=== PATIENT | female | born 1955 | race Hispanic/Latino ===

== ENCOUNTER 2019-08-07 01:05 | Inpatient (IN) | payer MEDICARE ==
[2019-08-07] MEDS ORDERED: LORazepam 2 MG/ML VIAL IM PRN (10:24)
[2019-08-07] MEDS ORDERED: HALOPERIDOL LACTATE 5 MG/1 ML INJ IM PRN (10:24)
--- NOTE | 2019-08-07 14:20 | History and Physical Report ---
GP History & Physical - History of Present Illness Date of admission: 08/06/19 Date of Examination: 08/07/19 Medications and Allergies Allergies Allergy/AdvReac Type Severity Reaction Status Date / Time Penicillins AdvReac Unknown Unknown Verified 08/07/19 01:29 Home Medications Medication Instructions Recorded Confirmed Last Taken Type Acetaminophen [Mapap] 325 mg PO PRN 08/07/19 08/07/19 Unknown History Amitriptyline/Chlordiazepoxide 5 - 12.5 mg PO TID 08/07/19 08/07/19 Unknown History [chlordiazePOXIDE-Amitriptyline 5/12.5 mg] Apixaban [Eliquis] 5 mg PO BID 08/07/19 08/07/19 Unknown History Digoxin [Lanoxin] 125 mcg PO DAILY 08/07/19 08/07/19 Unknown History Estradiol 1 mg PO DAILY 08/07/19 08/07/19 Unknown History Furosemide [Lasix TAB] 40 mg PO DAILY 08/07/19 08/07/19 Unknown History Gabapentin 300 mg PO TID 08/07/19 08/07/19 Unknown History Insulin NPH Hum/Reg Insulin Hm 20 unit SQ BID 08/07/19 08/07/19 Unknown History [Relion Novolin 70-30 Vial] Lisinopril 20 mg PO DAILY 08/07/19 08/07/19 Unknown History Metoprolol [Lopressor TAB] 50 mg PO BID 08/07/19 08/07/19 Unknown History Pantoprazole [Protonix TAB] 40 mg PO DAILY 08/07/19 08/07/19 Unknown History cephALEXin [Keflex] 500 mg PO BID 08/07/19 08/07/19 Unknown History glipiZIDE [Glucotrol] 5 mg pe PO DAILY 08/07/19 08/07/19 Unknown History metFORMIN [Glucophage] 500 mg PO BID 08/07/19 08/07/19 Unknown History rOPINIRole [Requip] 2 mg PO QID 08/07/19 08/07/19 Unknown History risperiDONE [RisperDAL] 2 mg PO DAILY 08/07/19 08/07/19 Unknown History Active Meds: Active Medications Haloperidol Lactate (Haldol) 5 mg IM Q6H PRN PRN Reason: Agitation Lorazepam (Ativan) 2 mg IM Q6H PRN PRN Reason: Agitation Results - Results Labs/Vitals: Laboratory Last Values POC Glucose 139 (70-105) H 08/07/19 11:48 Last Vital Signs Temp 98.2 F 08/07/19 09:32 Pulse 92 H 08/07/19 09:32 Resp 16 08/07/19 09:32 BP 91/53 08/07/19 09:32 Pulse Ox 95 08/07/19 09:32 Physical Examination - Constitutional Vitals: Vital Signs Temp Pulse Resp BP Pulse Ox 98.2 F 92 H 16 91/53 95 08/07/19 09:32 08/07/19 09:32 08/07/19 09:32 08/07/19 09:32 08/07/19 09:32 Temperature -Last 24 Hours Temperature 98.2 F Temperature 98.4 F Mental Status Exam - Vital signs Last Vital Signs Temp 98.2 F 08/07/19 09:32 Pulse 92 H 08/07/19 09:32 Resp 16 08/07/19 09:32 BP 91/53 08/07/19 09:32 Pulse Ox 95 08/07/19 09:32 Physician Certification - Certification Statement Physician Certification Statement: This is an acknowledgement statement that CHINEDU HOLLINGSWORTH is a 64 year old F who requires inpatient psychiatric admission for treatment which could reasonably be expected to improve the patient's condition for Estimated period of time patient will need to remain in the hospital: [ ] Plan for post-hospital care: [ ]
[2019-08-07] MEDS ORDERED: NITROGLYCERIN 0.4 MG TAB SUBL SL PRN (14:56)
[2019-08-07] MEDS ORDERED: ACETAMINOPHEN 325 MG TAB PO SCH (15:00)
--- NOTE | 2019-08-07 15:09 | Consultation ---
History of Present Illness - Reason for Consult Consult date: 08/07/19 Requesting physician: JONATHAN GARCIA - History of Present Illness It is a 64-year-old female with a history of hypertension #2 myocardial infarction status post stenting, restless leg syndrome, coronary disease, diabetes hyperlipidemia presents with chief complaint of acute psychosis and paranoia. Patient from [facility] brought from that town to [facility]. Patient was placed in psychiatric hospital was stabilized. Had an episode of chest pain and was discharged out of the hospital for full workup. Patient had a negative troponin echo showed ejection fraction 40%. Stress test negative and CTA was negative as well. Presents this time with chest pain. He should pain is described as atypical. Patient states similar to indigestion. Nonradiating right under xiphoid process. Patient also complains of a soreness consistent with previous CABG. At present in no acute distress patient's pain free at this particular time. She is calm and cooperative has been at bedside all questions and concerns answered to her family's satisfaction. Past History Past Medical History: CAD, diabetes, heart failure, hypertension Past Surgical History: CABG, PTCA Social history: , lives with family, full code Family history: hypertension Medications and Allergies Allergies Allergy/AdvReac Type Severity Reaction Status Date / Time Penicillins AdvReac Unknown Unknown Verified 08/07/19 01:29 Home Medications Medication Instructions Recorded Confirmed Last Taken Type Acetaminophen [Mapap] 325 mg PO PRN 08/07/19 08/07/19 Unknown History Amitriptyline/Chlordiazepoxide 5 - 12.5 mg PO TID 08/07/19 08/07/19 Unknown History [chlordiazePOXIDE-Amitriptyline 5/12.5 mg] Apixaban [Eliquis] 5 mg PO BID 08/07/19 08/07/19 Unknown History Digoxin [Lanoxin] 125 mcg PO DAILY 08/07/19 08/07/19 Unknown History Estradiol 1 mg PO DAILY 08/07/19 08/07/19 Unknown History Furosemide [Lasix TAB] 40 mg PO DAILY 08/07/19 08/07/19 Unknown History Gabapentin 300 mg PO TID 08/07/19 08/07/19 Unknown History Insulin NPH Hum/Reg Insulin Hm 20 unit SQ BID 08/07/19 08/07/19 Unknown History [Relion Novolin 70-30 Vial] Lisinopril 20 mg PO DAILY 08/07/19 08/07/19 Unknown History Metoprolol [Lopressor TAB] 50 mg PO BID 08/07/19 08/07/19 Unknown History Pantoprazole [Protonix TAB] 40 mg PO DAILY 08/07/19 08/07/19 Unknown History cephALEXin [Keflex] 500 mg PO BID 08/07/19 08/07/19 Unknown History glipiZIDE [Glucotrol] 5 mg pe PO DAILY 08/07/19 08/07/19 Unknown History metFORMIN [Glucophage] 500 mg PO BID 08/07/19 08/07/19 Unknown History rOPINIRole [Requip] 2 mg PO QID 08/07/19 08/07/19 Unknown History risperiDONE [RisperDAL] 2 mg PO DAILY 08/07/19 08/07/19 Unknown History Active Meds: Active Medications Acetaminophen (Tylenol) 325 mg PO PRN [facility] Apixaban (Eliquis) 5 mg PO BID [facility]; Protocol Stop: 08/13/19 23:59 Cephalexin (Keflex) 500 mg PO BID [facility] Digoxin (Lanoxin) 0.125 mg PO DAILY [facility] Estradiol (Estrace) 1 mg PO DAILY [facility] Furosemide (Lasix) 40 mg PO DAILY [facility] Gabapentin (Gabapentin) 300 mg PO TID [facility] Glipizide (Glucotrol) mg PO DAILY [facility] Haloperidol Lactate (Haldol) 5 mg IM Q6H PRN PRN Reason: Agitation Insulin Human Isoph/Insulin Regular (Humulin 70/30) 20 unit SUB-Q BID [facility] Stop: 08/11/19 23:59 Lorazepam (Ativan) 2 mg IM Q6H PRN PRN Reason: Agitation Nitroglycerin (Nitrostat) 0.4 mg SL .Q5MIN PRN PRN Reason: Chest Pain Pantoprazole Sodium (Protonix) 40 mg PO DAILY [facility] Review of Systems Constitutional: weight loss, weakness, no fever, no chills, no sweats, no night sweats, no fatigue, no malaise, no lethargy, no chronic headaches, no poor appetite Ears, nose, mouth and throat: no ear discharge, no decreased hearing, no dental pain, no mouth pain, no sore throat, no swelling in throat, no voice changes, no neck lump Breasts: no deferred Cardiovascular: chest pain, edema, no orthopnea, no palpitations, no rapid/irregular heart beat, no syncope, no lightheadedness, no shortness of breath, no dyspnea on exertion, no phlebitis, no high blood pressure, no leg edema, no decreased exercise tolerance Respiratory: no cough, no shortness of breath, no wheezing, no pleurisy, no pain on inspiration, no respiratory infections, no home oxygen Gastrointestinal: nausea, loss of appetite, no vomiting, no constipation, no change in bowel habits, no hematemesis, no hematochezia, no early satiety, no heartburn Genitourinary Female: no dyspareunia, no menorrhagia, no dysuria, no urinary frequency, no urge incontinence, no nocturia, no decreased libido, no mood problems Menstruation: no period spotting, no menses 1-7 days Musculoskeletal: no neck stiffness, no shooting arm pain, no low back pain, no leg numbness/tingling, no morning stiffness, no muscle weakness, no atrophy, no fractures, no arthritis Integumentary: no rash, no redness, no boils, no lesions, no depigmentation, no acne, no color changes, no change in hair/nails, no striae, no hirsutism Neurological: numbness, no head injury, no transient paralysis, no paralysis, no parathesias, no tingling, no syncope, no tic, no aphasia, no change in mentation, no memory loss, no motor disturbance, no double vision Psychiatric: anxiety, hallucinations, paranoia, difficulties concentrating, no memory loss, no change in sleep habits, no sleep disturbances, no insomnia, no hypersomnia, no change in appetite, no change in libido, no suicidal ideation, no disorientation, no depression, no hopelessness, no anhedonia, no anxiety attacks, no sadness/tearfullness Endocrine: no flushing, no proptosis, no deepening of the voice, no high blood sugars, no recent glucocorticoid use, no fatigue Hematologic/Lymphatic: no easy bruising, no easy bleeding, no lymphadenopathy, no thrombophilia, no other Allergic/Immunologic: no allergic rhinitis, no wheezing, no persistent infections, no anaphylaxis, no other Exam - Constitutional Vitals: Temp Pulse Resp BP Pulse Ox 98.2 F 92 H 16 91/53 95 08/07/19 09:32 08/07/19 09:32 08/07/19 09:32 08/07/19 09:32 08/07/19 09:32 General appearance: Present: no acute distress, well-nourished - EENT Eyes: Present: PERRL ENT: hearing intact, clear oral mucosa - Neck Neck: Present: supple, normal ROM - Respiratory Respiratory effort: normal Respiratory: bilateral: CTA - Cardiovascular Heart Sounds: Present: S1 & S2. Absent: rub, click - Extremities Extremities: pulses symmetrical, No edema Extremity abnormal: edema Peripheral Pulses: within normal limits - Abdominal General gastrointestinal: Present: soft, non-tender, non-distended, normal bowel sounds Female genitourinary: Present: normal - Integumentary Integumentary: Present: clear, warm, dry - Musculoskeletal Musculoskeletal: gait normal, strength equal bilaterally - Psychiatric Psychiatric: appropriate mood/affect, intact judgment & insight - Neurologic Neurologic: CNII-XII intact, moves all extremities Results - Labs Labs: Abnormal lab results 08/07/19 08/07/19 Range/Units 07:41 11:48 POC Glucose 163 H 139 H (70-105) Assessment and Plan - Patient Problems (1) Chest pain Current Visit: Yes Status: Acute Plan to address problem: chest pain at present appears to be noncardiogenic. Patient recent negative workup on 08/06/2019. Unremarkable and chest pain is not typical of angina at this particular time. We'll treat when necessary nitroglycerin. Treat for GERD which is most likely with proton pump inhibitor. He should also has some soreness from recent CABG but this is also different than the pain she is having. (2) Restless leg syndrome Current Visit: Yes Status: Acute Plan to address problem: Restart medical management Requip. (3) Schizophrenia Current Visit: Yes Status: Acute Plan to address problem: patient here paranoid schizophrenia being followed by psychiatry. (4) Coronary artery disease Current Visit: Yes Status: Acute Plan to address problem: She'll history of coronary artery disease stable at this particular time aggressive antiplatelet anti-thrombin therapy. (5) Hypertension Current Visit: Yes Status: Acute Plan to address problem: She now has been consistently hypotensive we'll continue to hold medicines at this particular time. (6) Diabetes 1.5, managed as type 1 Current Visit: Yes Status: Acute Plan to address problem: Diabetes or resume insulin and glipizide. We'll hold metformin for now reintroduce his blood sugars remain elevated.
[2019-08-07] MEDS ORDERED: DEXTROSE 50% IN WATER (25GM) 50 ML SYRINGE IV PRN (15:18)
[2019-08-07] MEDS: DIGOXIN 0.125 MG TAB PO SCH (18:15)
[2019-08-07] MEDS: cephALEXin 500 MG CAP PO SCH ×2 (18:15→21:29)
[2019-08-07] MEDS: ESTRADIOL 1 MG TAB PO SCH (18:15)
[2019-08-07] MEDS: FUROSEMIDE 40 MG TAB PO SCH (18:17)
[2019-08-07] MEDS: PANTOPRAZOLE 40 MG TAB PO SCH (18:18)
[2019-08-07] MEDS: INSULIN NPH/REGULAR 70/30 INJ SUB-Q SCH (18:21)
[2019-08-07] MEDS: GABAPENTIN 300 MG CAP PO SCH (20:02)
[2019-08-07] MEDS: AMITRIPTYLINE 25 MG TAB PO SCH (21:28)
[2019-08-07] MEDS: APIXABAN 5 MG TAB PO SCH (21:29)
[2019-08-07 22:20] LABS: Basophils # (Auto) 0.1 K/mm3 (0.0-0.1); Eosinophils # (Auto) 0.3 K/mm3 (0.0-0.4); Monocytes # (Auto) 0.8 K/mm3 (0.0-0.8); Monocytes % (Auto) 9.7 % (0.0-7.3)
[2019-08-07 22:21] LABS: Hematocrit 37.7 % (30.3-42.9); Hemoglobin 12.3 gm/dl (10.1-14.3); Mean Corpuscular HGB Conc 33 % (30-34); Mean Corpuscular Volume 90 fl (79-97); Platelet Count 263 K/mm3 (140-440); Red Blood Count 4.19 M/mm3 (3.65-5.03); Red Cell Distribution Width 21.2 % (13.2-15.2)
[2019-08-07 22:22] LABS: Basophils % (Auto) 1.1 % (0.0-1.8)
[2019-08-07 22:40] LABS: Calcium 9.4 mg/dL (8.4-10.2); Chol/HDL Ratio 6.24 %
[2019-08-08] MEDS: rOPINIRole 1 MG TAB PO SCH ×2 (00:23→21:12)
[2019-08-08] MEDS: GABAPENTIN 300 MG CAP PO SCH ×3 (08:55→20:17)
[2019-08-08] MEDS: glipiZIDE 5 MG TAB PO SCH (08:55)
[2019-08-08] MEDS: INSULIN NPH/REGULAR 70/30 INJ SUB-Q SCH ×2 (09:52→17:03)
[2019-08-08] MEDS: DIGOXIN 0.125 MG TAB PO SCH (10:25)
[2019-08-08] MEDS: ESTRADIOL 1 MG TAB PO SCH (10:25)
[2019-08-08] MEDS: FUROSEMIDE 40 MG TAB PO SCH (10:26)
[2019-08-08] MEDS: APIXABAN 5 MG TAB PO SCH ×2 (10:26→21:13)
[2019-08-08] MEDS: PANTOPRAZOLE 40 MG TAB PO SCH (10:26)
[2019-08-08] MEDS: cephALEXin 500 MG CAP PO SCH ×2 (10:26→21:13)
--- NOTE | 2019-08-08 13:07 | History and Physical Report ---
GP History & Physical - History of Present Illness Date of admission: 08/07/19 Date of Examination: 08/08/19 Reason for Admission: Psychopathology interference, Unable to care for self Chief Complaint: Unresponsive at times History of Present Illness: The patient is a 64-year-old female with a history of Schizoaffective disorder, bipolar type, hypertension #2 myocardial infarction status post stenting, restless leg syndrome, coronary disease, diabetes hyperlipidemia presents with acute psychosis, paranoia and intermittent catatonia. Patient from [facility] brought from that town to [facility]. Patient was placed in psychiatric hospital was stabilized. Had an episode of chest pain and was discharged out of the hospital for full workup. Patient had a negative troponin echo showed ejection fraction 40%. Stress test negative and CTA was negative as well. She is calm, alert and cooperative. She admits she has not been compliant with her medication. Per report pt has episodes when she zones out and becomes non responsive. She denies having auditory hallucinations but per family she has periods of both visual and auditory hallucinations since her cva (date unknown) and is paranoid that someone is trying to kill her. Per family pt has been more depressed than bipolar. Pt has multiple medical problems. She had a VT and Cabg in 10/2018. Hx of Cva, DM, Htn, Cervical CA, CHF, CAD and recently dx UTI for which she was prescribed Keflex. Legal Status: Voluntary Patient Problems: Current Active Problems Chest pain (Acute) Coronary artery disease (Acute) Diabetes 1.5, managed as type 1 (Acute) Hypertension (Acute) Restless leg syndrome (Acute) Schizophrenia (Acute) Reaction to Hospitalization: Accepting Medications and Allergies Allergies Allergy/AdvReac Type Severity Reaction Status Date / Time Penicillins AdvReac Unknown Unknown Verified 08/07/19 01:29 Home Medications Medication Instructions Recorded Confirmed Last Taken Type Acetaminophen [Mapap] 325 mg PO PRN 08/07/19 08/07/19 Unknown History Amitriptyline/Chlordiazepoxide 5 - 12.5 mg PO TID 08/07/19 08/07/19 Unknown History [chlordiazePOXIDE-Amitriptyline 5/12.5 mg] Apixaban [Eliquis] 5 mg PO BID 08/07/19 08/07/19 Unknown History Digoxin [Lanoxin] 125 mcg PO DAILY 08/07/19 08/07/19 Unknown History Estradiol 1 mg PO DAILY 08/07/19 08/07/19 Unknown History Furosemide [Lasix TAB] 40 mg PO DAILY 08/07/19 08/07/19 Unknown History Gabapentin 300 mg PO TID 08/07/19 08/07/19 Unknown History Insulin NPH Hum/Reg Insulin Hm 20 unit SQ BID 08/07/19 08/07/19 Unknown History [Relion Novolin 70-30 Vial] Lisinopril 20 mg PO DAILY 08/07/19 08/07/19 Unknown History Metoprolol [Lopressor TAB] 50 mg PO BID 08/07/19 08/07/19 Unknown History Pantoprazole [Protonix TAB] 40 mg PO DAILY 08/07/19 08/07/19 Unknown History cephALEXin [Keflex] 500 mg PO BID 08/07/19 08/07/19 Unknown History glipiZIDE [Glucotrol] 5 mg pe PO DAILY 08/07/19 08/07/19 Unknown History metFORMIN [Glucophage] 500 mg PO BID 08/07/19 08/07/19 Unknown History rOPINIRole [Requip] 2 mg PO QID 08/07/19 08/07/19 Unknown History risperiDONE [RisperDAL] 2 mg PO DAILY 08/07/19 08/07/19 Unknown History Active Meds: Active Medications Acetaminophen (Tylenol) 325 mg PO PRN [facility] Amitriptyline HCl (Elavil) 100 mg PO QHS [facility] Last Admin: 08/07/19 21:28 Dose: 100 mg Documented by: Apixaban (Eliquis) 5 mg PO BID [facility]; Protocol Stop: 08/13/19 23:59 Last Admin: 08/08/19 10:26 Dose: 5 mg Documented by: Cephalexin (Keflex) 500 mg PO BID [facility] Last Admin: 08/08/19 10:26 Dose: 500 mg Documented by: Dextrose (D50w (25gm) Syringe) 50 ml IV Q30MIN PRN; Protocol PRN Reason: Hypoglycemia Digoxin (Lanoxin) 0.125 mg PO DAILY [facility] Last Admin: 08/08/19 10:25 Dose: 0.125 mg Documented by: Estradiol (Estrace) 1 mg PO DAILY [facility] Last Admin: 08/08/19 10:25 Dose: 1 mg Documented by: Furosemide (Lasix) 40 mg PO DAILY [facility] Last Admin: 08/08/19 10:26 Dose: 40 mg Documented by: Gabapentin (Gabapentin) 300 mg PO TID [facility] Last Admin: 08/08/19 08:55 Dose: 300 mg Documented by: Glipizide (Glucotrol) 5 mg PO QDDIAB [facility] Last Admin: 08/08/19 08:55 Dose: 5 mg Documented by: Haloperidol Lactate (Haldol) 5 mg IM Q6H PRN PRN Reason: Agitation Insulin Human Isoph/Insulin Regular (Humulin 70/30) 20 unit SUB-Q BIDDIAB [facility] Last Admin: 08/08/19 09:52 Dose: 20 unit Documented by: Lorazepam (Ativan) 2 mg IM Q6H PRN PRN Reason: Agitation Nitroglycerin (Nitrostat) 0.4 mg SL .Q5MIN PRN PRN Reason: Chest Pain Pantoprazole Sodium (Protonix) 40 mg PO DAILY [facility] Last Admin: 08/08/19 10:26 Dose: 40 mg Documented by: Ropinirole HCl (Requip) 2 mg PO QHS [facility] Last Admin: 08/08/19 00:23 Dose: 2 mg Documented by: Substance History - Substance History Drug Use: none Hx Tobacco Use: No Alcohol Use: No Past psychiatric history - Past Medical History Past Medical History: acute VT (VT and Cabg in 10/2018. Hx of Cva, DM, Htn, Cervical CA, CHF, CAD) - past Psychiatric treatment and history Psych: Bipolar, Schizophrenia - Social History Social history: lives with family Review of Systems Psychiatric: anxiety, hallucinations Results - Results Labs/Vitals: Laboratory Last Values WBC 8.5 K/mm3 (4.5-11.0) 08/07/19 22:00 RBC 4.19 M/mm3 (3.65-5.03) 08/07/19 22:00 Hgb 12.3 gm/dl (10.1-14.3) 08/07/19 22:00 Hct 37.7 % (30.3-42.9) 08/07/19 22:00 MCV 90 fl (79-97) 08/07/19 22:00 MCH 30 pg (28-32) 08/07/19 22:00 MCHC 33 % (30-34) 08/07/19 22:00 RDW 21.2 % (13.2-15.2) H 08/07/19 22:00 Plt Count 263 K/mm3 (140-440) 08/07/19 22:00 Lymph % (Auto) 24.0 % (13.4-35.0) 08/07/19 22:00 [place] % (Auto) 9.7 % (0.0-7.3) H 08/07/19 22:00 Eos % (Auto) 4.0 % (0.0-4.3) 08/07/19 22:00 Baso % (Auto) 1.1 % (0.0-1.8) 08/07/19 22:00 Lymph # 2.0 K/mm3 (1.2-5.4) 08/07/19 22:00 [place] # 0.8 K/mm3 (0.0-0.8) 08/07/19 22:00 Eos # 0.3 K/mm3 (0.0-0.4) 08/07/19 22:00 Baso # 0.1 K/mm3 (0.0-0.1) 08/07/19 22:00 Seg Neutrophils % 61.2 % (40.0-70.0) 08/07/19 22:00 Seg Neutrophils # 5.2 K/mm3 (1.8-7.7) 08/07/19 22:00 Sodium 135 mmol/L (137-145) L 08/07/19 22:00 Potassium 4.2 mmol/L (3.6-5.0) 08/07/19 22:00 Chloride 94.6 mmol/L (98-107) L 08/07/19 22:00 Carbon Dioxide 22 mmol/L (22-30) 08/07/19 22:00 Anion Gap 23 mmol/L 08/07/19 22:00 BUN 29 mg/dL (7-17) H 08/07/19 22:00 Creatinine 2.9 mg/dL (0.7-1.2) H 08/07/19 22:00 Estimated GFR 16 ml/min 08/07/19 22:00 BUN/Creatinine Ratio 10 % 08/07/19 22:00 Glucose 200 mg/dL (65-100) H 08/07/19 22:00 POC Glucose 219 (70-105) H 08/08/19 11:51 Calcium 9.4 mg/dL (8.4-10.2) 08/07/19 22:00 Triglycerides 268 mg/dL (2-149) H 08/07/19 22:00 Cholesterol 231 mg/dL (50-199) H 08/07/19 22:00 LDL Cholesterol Direct 156 mg/dL (50-130) H 08/07/19 22:00 HDL Cholesterol 37 mg/dL (40-59) L 08/07/19 22:00 Cholesterol/HDL Ratio 6.24 % 08/07/19 22:00 Last Vital Signs Temp 98.4 F 08/08/19 10:04 Pulse 92 H 08/08/19 10:25 Resp 16 08/08/19 10:04 BP 134/75 08/08/19 10:25 Pulse Ox 95 08/08/19 10:04 Physical Examination - Constitutional Vitals: Vital Signs Temp Pulse Resp BP Pulse Ox 98.4 F 92 H 16 134/75 95 08/08/19 10:04 08/08/19 10:25 08/08/19 10:04 08/08/19 10:25 08/08/19 10:04 Temperature -Last 24 Hours Temperature 98.4 F Temperature 98.5 F General appearance: Present: no acute distress - EENT Eyes: Present: PERRL, EOM intact ENT: hearing intact, clear oral mucosa - Neck Neck: Present: supple, normal ROM - Respiratory Respiratory effort: normal Mental Status Exam - Vital signs Last Vital Signs Temp 98.4 F 08/08/19 10:04 Pulse 92 H 08/08/19 10:25 Resp 16 08/08/19 10:04 BP 134/75 08/08/19 10:25 Pulse Ox 95 08/08/19 10:04 - Exam Orientation: time, place, person Affect: anxious Mood: congruent with affect Perceptions: auditory, hallucinations Speech: normal rate and pattern Concentration: focused Motor activity: lethargic Level of consciousness: alert Memory: Intact Interaction: cooperative Assessment and Plan - Psychiatric problem (1) Schizophrenia Current Visit: Yes Status: Acute Qualifiers: Schizophrenia type: catatonic schizophrenia Qualified Code(s): F20.2 - Catatonic schizophrenia plan to address problem: Patient will be admitted for inpatient psychiatric evaluation, medication adjustment and close monitoring The patient's behavior, mood, sleep and appetite will be closely monitored. Patient will be enrolled in individual and group therapeutic sessions and encouraged to attend. Patient will be provided with a safe and structured environment. Patient's physical health needs will be addressed by the Hospitalist. Social Assessment will be completed and the Battery Mechanic will work with patient and family to ensure a suitable and safe disposition Medication adjustment will be made as clinically indicated The patient agreed on the treatment plan, understood the risk, benefit, alternative treatment, potential consequence of no treatment, and gave informed consent. Physician Certification - Certification Statement Physician Certification Statement: This is an acknowledgement statement that CHINEDU HOLLINGSWORTH is a 64 year old F who requires inpatient psychiatric admission for treatment which could reasonably be expected to improve the patient's condition for Schizophrenia Estimated period of time patient will need to remain in the hospital: 7 days Plan for post-hospital care: Out-patient care
[2019-08-08] MEDS: AMITRIPTYLINE 25 MG TAB PO SCH (21:13)
--- NOTE | 2019-08-09 07:39 | Progress Note ---
Subjective Date of service: 08/09/19 Principal diagnosis: Schizophrenia Bipolar Disorder Subjective Comment: Patient seen in the dayroom this morning. She is awake, alert, fully oriented, calm and pleasant. She reports good mood, denies SI/HI/AVH Nurses note that, Pt is alert and oriented x3, calm and cooperative, able to make needs known, patient denies SI/HI, denies A/V/H, patient is medication compliant, good appetite, sleeping well, interacting with peers, assistance with ADLS, denies SI/HI, denies A/V/H, blood sugar 125, vital signs stable, complaind of left leg pain and was given 325mg of Tylenol at 0529 this morning , no signs of distress noted, patient is being monitored. Objective - Criteria for Continued Treatment Criteria for Continued Treatment: Improving Level of Functioning, Reducing Isolative Behaviors, Stablizing Level of Functioning, Improving Emotional/Socia, Decreasing Frequency of Hospitalization - Objective Observation Participation Level: Minimal Assessment and Plan - Patient Problems (1) Schizophrenia Current Visit: Yes Status: Acute Qualifiers: Schizophrenia type: catatonic schizophrenia Qualified Code(s): F20.2 - Catatonic schizophrenia Plan to address problem: Patient will be admitted for inpatient psychiatric evaluation, medication adjustment and close monitoring The patient's behavior, mood, sleep and appetite will be closely monitored. Patient will be enrolled in individual and group therapeutic sessions and encouraged to attend. Patient will be provided with a safe and structured environment. Patient's physical health needs will be addressed by the Hospitalist. Social Assessment will be completed and the Temperature Logging Operator will work with patient and family to ensure a suitable and safe disposition Medication adjustment will be made as clinically indicated The patient agreed on the treatment plan, understood the risk, benefit, alternative treatment, potential consequence of no treatment, and gave informed consent. Medications and Allergies Allergies Allergy/AdvReac Type Severity Reaction Status Date / Time Penicillins AdvReac Unknown Unknown Verified 08/07/19 01:29 Home Medications Medication Instructions Recorded Confirmed Last Taken Type Acetaminophen [Mapap] 325 mg PO PRN 08/07/19 08/07/19 Unknown History Amitriptyline/Chlordiazepoxide 5 - 12.5 mg PO TID 08/07/19 08/07/19 Unknown History [chlordiazePOXIDE-Amitriptyline 5/12.5 mg] Apixaban [Eliquis] 5 mg PO BID 08/07/19 08/07/19 Unknown History Digoxin [Lanoxin] 125 mcg PO DAILY 08/07/19 08/07/19 Unknown History Estradiol 1 mg PO DAILY 08/07/19 08/07/19 Unknown History Furosemide [Lasix TAB] 40 mg PO DAILY 08/07/19 08/07/19 Unknown History Gabapentin 300 mg PO TID 08/07/19 08/07/19 Unknown History Insulin NPH Hum/Reg Insulin Hm 20 unit SQ BID 08/07/19 08/07/19 Unknown History [Relion Novolin 70-30 Vial] Lisinopril 20 mg PO DAILY 08/07/19 08/07/19 Unknown History Metoprolol [Lopressor TAB] 50 mg PO BID 08/07/19 08/07/19 Unknown History Pantoprazole [Protonix TAB] 40 mg PO DAILY 08/07/19 08/07/19 Unknown History cephALEXin [Keflex] 500 mg PO BID 08/07/19 08/07/19 Unknown History glipiZIDE [Glucotrol] 5 mg pe PO DAILY 08/07/19 08/07/19 Unknown History metFORMIN [Glucophage] 500 mg PO BID 08/07/19 08/07/19 Unknown History rOPINIRole [Requip] 2 mg PO QID 08/07/19 08/07/19 Unknown History risperiDONE [RisperDAL] 2 mg PO DAILY 08/07/19 08/07/19 Unknown History Active Meds: Active Medications Acetaminophen (Tylenol) 325 mg PO PRN [facility] Last Admin: 08/09/19 05:29 Dose: 325 mg Documented by: Amitriptyline HCl (Elavil) 100 mg PO QHS [facility] Last Admin: 08/08/19 21:13 Dose: 100 mg Documented by: Apixaban (Eliquis) 5 mg PO BID [facility]; Protocol Stop: 08/13/19 23:59 Last Admin: 08/08/19 21:13 Dose: 5 mg Documented by: Cephalexin (Keflex) 500 mg PO BID [facility] Last Admin: 08/08/19 21:13 Dose: 500 mg Documented by: Dextrose (D50w (25gm) Syringe) 50 ml IV Q30MIN PRN; Protocol PRN Reason: Hypoglycemia Digoxin (Lanoxin) 0.125 mg PO DAILY [facility] Last Admin: 08/08/19 10:25 Dose: 0.125 mg Documented by: Estradiol (Estrace) 1 mg PO DAILY [facility] Last Admin: 08/08/19 10:25 Dose: 1 mg Documented by: Furosemide (Lasix) 40 mg PO DAILY [facility] Last Admin: 08/08/19 10:26 Dose: 40 mg Documented by: Gabapentin (Gabapentin) 300 mg PO TID [facility] Last Admin: 08/08/19 20:17 Dose: 300 mg Documented by: Glipizide (Glucotrol) 5 mg PO QDDIAB [facility] Last Admin: 08/08/19 08:55 Dose: 5 mg Documented by: Haloperidol Lactate (Haldol) 5 mg IM Q6H PRN PRN Reason: Agitation Insulin Human Isoph/Insulin Regular (Humulin 70/30) 20 unit SUB-Q BIDDIAB [facility] Last Admin: 08/08/19 17:03 Dose: 20 unit Documented by: Lorazepam (Ativan) 2 mg IM Q6H PRN PRN Reason: Agitation Nitroglycerin (Nitrostat) 0.4 mg SL .Q5MIN PRN PRN Reason: Chest Pain Pantoprazole Sodium (Protonix) 40 mg PO DAILY [facility] Last Admin: 08/08/19 10:26 Dose: 40 mg Documented by: Ropinirole HCl (Requip) 2 mg PO QHS [facility] Last Admin: 08/08/19 21:12 Dose: 2 mg Documented by: Results - Results Labs/Vitals: Laboratory Last Values WBC 8.5 K/mm3 (4.5-11.0) 08/07/19 22:00 RBC 4.19 M/mm3 (3.65-5.03) 08/07/19 22:00 Hgb 12.3 gm/dl (10.1-14.3) 08/07/19 22:00 Hct 37.7 % (30.3-42.9) 08/07/19 22:00 MCV 90 fl (79-97) 08/07/19 22:00 MCH 30 pg (28-32) 08/07/19 22:00 MCHC 33 % (30-34) 08/07/19 22:00 RDW 21.2 % (13.2-15.2) H 08/07/19 22:00 Plt Count 263 K/mm3 (140-440) 08/07/19 22:00 Lymph % (Auto) 24.0 % (13.4-35.0) 08/07/19 22:00 [place] % (Auto) 9.7 % (0.0-7.3) H 08/07/19 22:00 Eos % (Auto) 4.0 % (0.0-4.3) 08/07/19 22:00 Baso % (Auto) 1.1 % (0.0-1.8) 08/07/19 22:00 Lymph # 2.0 K/mm3 (1.2-5.4) 08/07/19 22:00 [place] # 0.8 K/mm3 (0.0-0.8) 08/07/19 22:00 Eos # 0.3 K/mm3 (0.0-0.4) 08/07/19 22:00 Baso # 0.1 K/mm3 (0.0-0.1) 08/07/19 22:00 Seg Neutrophils % 61.2 % (40.0-70.0) 08/07/19 22:00 Seg Neutrophils # 5.2 K/mm3 (1.8-7.7) 08/07/19 22:00 Sodium 135 mmol/L (137-145) L 08/07/19 22:00 Potassium 4.2 mmol/L (3.6-5.0) 08/07/19 22:00 Chloride 94.6 mmol/L (98-107) L 08/07/19 22:00 Carbon Dioxide 22 mmol/L (22-30) 08/07/19 22:00 Anion Gap 23 mmol/L 08/07/19 22:00 BUN 29 mg/dL (7-17) H 08/07/19 22:00 Creatinine 2.9 mg/dL (0.7-1.2) H 08/07/19 22:00 Estimated GFR 16 ml/min 08/07/19 22:00 BUN/Creatinine Ratio 10 % 08/07/19 22:00 Glucose 200 mg/dL (65-100) H 08/07/19 22:00 POC Glucose 125 (70-105) H 08/08/19 20:11 Calcium 9.4 mg/dL (8.4-10.2) 08/07/19 22:00 Triglycerides 268 mg/dL (2-149) H 08/07/19 22:00 Cholesterol 231 mg/dL (50-199) H 08/07/19 22:00 LDL Cholesterol Direct 156 mg/dL (50-130) H 08/07/19 22:00 HDL Cholesterol 37 mg/dL (40-59) L 08/07/19 22:00 Cholesterol/HDL Ratio 6.24 % 08/07/19 22:00 Last Vital Signs Temp 98.5 F 08/08/19 19:30 Pulse 66 08/08/19 19:30 Resp 18 08/09/19 05:29 BP 94/58 08/08/19 19:30 Pulse Ox 94 08/08/19 19:30 Mental Status Exam - Vital signs Last Vital Signs Temp 98.6 F 08/09/19 19:49 Pulse 65 08/09/19 19:49 Resp 18 08/09/19 19:49 BP 130/61 08/09/19 19:49 Pulse Ox 91 08/09/19 19:49 - Exam Orientation: time, place, person Affect: flat Mood: congruent with affect Thought Process: Intact Perceptions: none Speech: slow Concentration: focused Motor activity: lethargic Level of consciousness: alert Memory: Intact Interaction: cooperative
[2019-08-09] MEDS: INSULIN NPH/REGULAR 70/30 INJ SUB-Q SCH ×2 (09:57→17:01)
[2019-08-09] MEDS: GABAPENTIN 300 MG CAP PO SCH ×3 (09:58→20:34)
[2019-08-09] MEDS: APIXABAN 5 MG TAB PO SCH ×2 (09:58→21:40)
[2019-08-09] MEDS: glipiZIDE 5 MG TAB PO SCH (09:59)
[2019-08-09] MEDS: PANTOPRAZOLE 40 MG TAB PO SCH (09:59)
[2019-08-09] MEDS: ESTRADIOL 1 MG TAB PO SCH (09:59)
[2019-08-09] MEDS: FUROSEMIDE 40 MG TAB PO SCH (09:59)
[2019-08-09] MEDS: cephALEXin 500 MG CAP PO SCH ×2 (09:59→21:30)
[2019-08-09] MEDS: DIGOXIN 0.125 MG TAB PO SCH (10:01)
[2019-08-09] MEDS: risperiDONE 0.25 MG TAB PO SCH ×2 (12:10→21:30)
--- NOTE | 2019-08-09 12:26 | Progress Note ---
Assessment and Plan Assessment and plan: 64-year-old female presents for exam treatment of chronic medical problems after mental health issues. Problems seem stable. We'll sign off for now please call if any further needs arise. - Patient Problems (1) Chest pain Current Visit: Yes Status: Acute Plan to address problem: Patient chest pain-free just had an extensive workup. We'll add nitroglycerin only when necessary. (2) Restless leg syndrome Current Visit: Yes Status: Acute Plan to address problem: Patient was versus leg syndrome. The dose that she is receiving now appears to be secondary to her Parkinson's syndrome. If she's taking medicine for restless leg syndrome it should be 1-3 hours prior to bedtime and will change this. (3) Schizophrenia Current Visit: Yes Status: Acute Qualifiers: Schizophrenia type: catatonic schizophrenia Qualified Code(s): F20.2 - Catatonic schizophrenia Plan to address problem: patient here paranoid schizophrenia being followed by psychiatry. (4) Coronary artery disease Current Visit: Yes Status: Acute Plan to address problem: She'll history of coronary artery disease stable at this particular time aggressive antiplatelet anti-thrombin therapy. (5) Hypertension Current Visit: Yes Status: Acute Plan to address problem: blood pressure is optimal control continue present medical management. (6) Diabetes 1.5, managed as type 1 Current Visit: Yes Status: Acute Plan to address problem: Diabetes or resume insulin and glipizide. We'll hold metformin for now reintroduce his blood sugars remain elevated. Optimal control blood sugar 116 0120 and 127. History Interval history: Patient today asymptomatic. Patient denies any chest pain any shortness of breath no reflux symptoms states she feels well. Overall blood pressure optimal control and diabetes also is abdomen controlled. He should remain alert. Able to make needs known at this time. Hospitalist Physical - Constitutional Vitals: Temp Pulse Resp BP Pulse Ox 97.4 F L 73 14 124/62 95 08/09/19 09:27 08/09/19 10:01 08/09/19 09:27 08/09/19 10:01 08/09/19 09:27 General appearance: Present: no acute distress - EENT Eyes: Present: PERRL, EOM intact ENT: hearing intact, clear oral mucosa, dentition normal - Neck Neck: Present: supple, normal ROM - Respiratory Respiratory: bilateral: CTA - Cardiovascular Rhythm: regular - Extremities Extremities: no ischemia, pulses intact, pulses symmetrical Peripheral Pulses: within normal limits - Abdominal General gastrointestinal: soft, non-tender, non-distended, normal bowel sounds - Neurologic Neurologic: CNII-XII intact, moves all extremities Results - Labs CBC & Chem 7: 08/07/19 22:00 08/07/19 22:00 Labs: Laboratory Last Values WBC 8.5 K/mm3 (4.5-11.0) 08/07/19 22:00 RBC 4.19 M/mm3 (3.65-5.03) 08/07/19 22:00 Hgb 12.3 gm/dl (10.1-14.3) 08/07/19 22:00 Hct 37.7 % (30.3-42.9) 08/07/19 22:00 MCV 90 fl (79-97) 08/07/19 22:00 MCH 30 pg (28-32) 08/07/19 22:00 MCHC 33 % (30-34) 08/07/19 22:00 RDW 21.2 % (13.2-15.2) H 08/07/19 22:00 Plt Count 263 K/mm3 (140-440) 08/07/19 22:00 Lymph % (Auto) 24.0 % (13.4-35.0) 08/07/19 22:00 [place] % (Auto) 9.7 % (0.0-7.3) H 08/07/19 22:00 Eos % (Auto) 4.0 % (0.0-4.3) 08/07/19 22:00 Baso % (Auto) 1.1 % (0.0-1.8) 08/07/19 22:00 Lymph # 2.0 K/mm3 (1.2-5.4) 08/07/19 22:00 [place] # 0.8 K/mm3 (0.0-0.8) 08/07/19 22:00 Eos # 0.3 K/mm3 (0.0-0.4) 08/07/19 22:00 Baso # 0.1 K/mm3 (0.0-0.1) 08/07/19 22:00 Seg Neutrophils % 61.2 % (40.0-70.0) 08/07/19 22:00 Seg Neutrophils # 5.2 K/mm3 (1.8-7.7) 08/07/19 22:00 Sodium 135 mmol/L (137-145) L 08/07/19 22:00 Potassium 4.2 mmol/L (3.6-5.0) 08/07/19 22:00 Chloride 94.6 mmol/L (98-107) L 08/07/19 22:00 Carbon Dioxide 22 mmol/L (22-30) 08/07/19 22:00 Anion Gap 23 mmol/L 08/07/19 22:00 BUN 29 mg/dL (7-17) H 08/07/19 22:00 Creatinine 2.9 mg/dL (0.7-1.2) H 08/07/19 22:00 Estimated GFR 16 ml/min 08/07/19 22:00 BUN/Creatinine Ratio 10 % 08/07/19 22:00 Glucose 200 mg/dL (65-100) H 08/07/19 22:00 POC Glucose 163 (70-105) H 08/09/19 12:00 Calcium 9.4 mg/dL (8.4-10.2) 08/07/19 22:00 Triglycerides 268 mg/dL (2-149) H 08/07/19 22:00 Cholesterol 231 mg/dL (50-199) H 08/07/19 22:00 LDL Cholesterol Direct 156 mg/dL (50-130) H 08/07/19 22:00 HDL Cholesterol 37 mg/dL (40-59) L 08/07/19 22:00 Cholesterol/HDL Ratio 6.24 % 08/07/19 22:00 Active Medications - Current Medications Current Medications: Generic Name Dose Route Start Last Admin Trade Name Freq PRN Reason Stop Dose Admin Acetaminophen 325 mg 08/07/19 15:00 08/09/19 05:29 Tylenol PO 325 mg PRN ARLYN Administration Amitriptyline HCl 100 mg 08/07/19 22:00 08/08/19 21:13 Elavil PO 100 mg QHS A[facility] Administration Apixaban 5 mg 08/07/19 22:00 08/09/19 09:58 Eliquis PO 08/13/19 23:59 5 mg BID A[facility]YN Administration Protocol Cephalexin 500 mg 08/07/19 16:00 08/09/19 09:59 Keflex PO 500 mg BID [facility] Administration Dextrose 50 ml 08/07/19 15:18 D50w (25gm) Syringe IV Q30MIN PRN Hypoglycemia Protocol Digoxin 0.125 mg 08/07/19 16:00 08/09/19 10:01 Lanoxin PO 0.125 mg DAILY A[facility] Administration Estradiol 1 mg 08/07/19 15:00 08/09/19 09:59 Estrace PO 1 mg DAILY [facility] Administration Furosemide 40 mg 08/07/19 16:00 08/09/19 09:59 Lasix PO 40 mg DAILY [facility] Administration Gabapentin 300 mg 08/07/19 20:00 08/09/19 09:58 Gabapentin PO 300 mg TID A[facility] Administration Glipizide 5 mg 08/08/19 08:00 08/09/19 09:59 Glucotrol PO 5 mg QDDIAB [facility] Administration Haloperidol Lactate 5 mg 08/07/19 10:24 Haldol IM Q6H PRN Agitation Insulin Human Isoph/Insulin Regular 20 unit 08/07/19 17:00 08/09/19 09:57 Humulin 70/30 SUB-Q 20 unit BIDDIAB [facility] Administration Lorazepam 2 mg 08/07/19 10:24 Ativan IM Q6H PRN [facility]itation Nitroglycerin 0.4 mg 08/07/19 14:56 Nitrostat SL .Q5MIN PRN Chest Pain Pantoprazole Sodium 40 mg 08/07/19 16:00 08/09/19 09:59 Protonix PO 40 mg DAILY [facility] Administration Risperidone 1 mg 08/09/19 12:00 08/09/19 12:10 Risperdal PO 1 mg BID [facility] Administration Ropinirole HCl 2 mg 08/08/19 00:30 08/08/19 21:12 Requip PO 2 mg QHS [facility] Administration
[2019-08-09] MEDS: AMITRIPTYLINE 25 MG TAB PO SCH (21:30)
[2019-08-09] MEDS: rOPINIRole 1 MG TAB PO SCH (21:30)
[2019-08-10] MEDS: glipiZIDE 5 MG TAB PO SCH (07:47)
[2019-08-10] MEDS: GABAPENTIN 300 MG CAP PO SCH ×3 (07:47→21:53)
[2019-08-10] MEDS: PANTOPRAZOLE 40 MG TAB PO SCH (09:13)
[2019-08-10] MEDS: cephALEXin 500 MG CAP PO SCH ×2 (09:14→21:53)
[2019-08-10] MEDS: APIXABAN 5 MG TAB PO SCH ×2 (09:14→21:53)
[2019-08-10] MEDS: FUROSEMIDE 40 MG TAB PO SCH (09:14)
[2019-08-10] MEDS: ESTRADIOL 1 MG TAB PO SCH (09:15)
[2019-08-10] MEDS: risperiDONE 0.25 MG TAB PO SCH ×2 (09:15→21:48)
[2019-08-10] MEDS: DIGOXIN 0.125 MG TAB PO SCH (09:16)
[2019-08-10] MEDS: INSULIN NPH/REGULAR 70/30 INJ SUB-Q SCH ×2 (09:23→16:31)
--- NOTE | 2019-08-10 09:47 | Progress Note ---
Subjective Date of service: 08/10/19 Principal diagnosis: Schizophrenia Bipolar Disorder Subjective Comment: Patient seen this morning. Patient presents with a "good morning" greeting and states that her mood is good and she slept well. Patient denies hallucination, "I think things in my mind to help me be happy and love everybody", patient stated that she use this technique to get pass her mental/physical problems. Patient stated that she is so much better now, and plans to continue her meds when discharged home. Patient admits to not being compliant with meds before being admitted but stated that she is now compliant with her meds and haven't experienced any side effects. Patients have no other complaints or concerns. Patient denies SI/HI/AVH. 08/10/2019 Nurses note states that, Patient was pleasant and cooperative during the night,she slept for 9 hours. Patient has no behavior issues to report at this time. MSE Orientation: time, place, person Affect: flat Mood: congruent with affect Thought Process: Intact Perceptions: none Speech: slow Concentration: focused Motor activity: lethargic Level of consciousness: alert Memory: Intact Interaction: cooperative Objective - Criteria for Continued Treatment Criteria for Continued Treatment: Improving Level of Functioning - Mental Status Mental Status: Oriented x 3 - Objective Observation Participation Level: Moderate Assessment and Plan - Patient Problems (1) Schizophrenia Current Visit: Yes Status: Acute Qualifiers: Schizophrenia type: catatonic schizophrenia Qualified Code(s): F20.2 - Catatonic schizophrenia Plan to address problem: Patient will be admitted for inpatient psychiatric evaluation, medication a djustment and close monitoring The patient's behavior, mood, sleep and appetite will be closely monitored. Patient will be enrolled in individual and group therapeutic sessions and encouraged to attend. Patient will be provided with a safe and structured environment. Patient's physical health needs will be addressed by the Hospitalist. Social Assessment will be completed and the Credit Balance Specialist will work with patient and family to ensure a suitable and safe disposition Medication adjustment will be made as clinically indicated The patient agreed on the treatment plan, understood the risk, benefit, alternative treatment, potential consequence of no treatment, and gave informed consent. Medications and Allergies Allergies Allergy/AdvReac Type Severity Reaction Status Date / Time Penicillins AdvReac Unknown Unknown Verified 08/07/19 01:29 Home Medications Medication Instructions Recorded Confirmed Last Taken Type Acetaminophen [Mapap] 325 mg PO PRN 08/07/19 08/07/19 Unknown History Amitriptyline/Chlordiazepoxide 5 - 12.5 mg PO TID 08/07/19 08/07/19 Unknown History [chlordiazePOXIDE-Amitriptyline 5/12.5 mg] Apixaban [Eliquis] 5 mg PO BID 08/07/19 08/07/19 Unknown History Digoxin [Lanoxin] 125 mcg PO DAILY 08/07/19 08/07/19 Unknown History Estradiol 1 mg PO DAILY 08/07/19 08/07/19 Unknown History Furosemide [Lasix TAB] 40 mg PO DAILY 08/07/19 08/07/19 Unknown History Gabapentin 300 mg PO TID 08/07/19 08/07/19 Unknown History Insulin NPH Hum/Reg Insulin Hm 20 unit SQ BID 08/07/19 08/07/19 Unknown History [Relion Novolin 70-30 Vial] Lisinopril 20 mg PO DAILY 08/07/19 08/07/19 Unknown History Metoprolol [Lopressor TAB] 50 mg PO BID 08/07/19 08/07/19 Unknown History Pantoprazole [Protonix TAB] 40 mg PO DAILY 08/07/19 08/07/19 Unknown History cephALEXin [Keflex] 500 mg PO BID 08/07/19 08/07/19 Unknown History glipiZIDE [Glucotrol] 5 mg pe PO DAILY 08/07/19 08/07/19 Unknown History metFORMIN [Glucophage] 500 mg PO BID 08/07/19 08/07/19 Unknown History rOPINIRole [Requip] 2 mg PO QID 08/07/19 08/07/19 Unknown History risperiDONE [RisperDAL] 2 mg PO DAILY 08/07/19 08/07/19 Unknown History Active Meds: Active Medications Acetaminophen (Tylenol) 325 mg PO PRN [facility] Last Admin: 08/09/19 05:29 Dose: 325 mg Documented by: Amitriptyline HCl (Elavil) 100 mg PO QHS [facility] Last Admin: 08/09/19 21:30 Dose: 100 mg Documented by: Apixaban (Eliquis) 5 mg PO BID [facility]; Protocol Stop: 08/13/19 23:59 Last Admin: 08/10/19 09:14 Dose: 5 mg Documented by: Cephalexin (Keflex) 500 mg PO BID [facility] Last Admin: 08/10/19 09:14 Dose: 500 mg Documented by: Dextrose (D50w (25gm) Syringe) 50 ml IV Q30MIN PRN; Protocol PRN Reason: Hypoglycemia Digoxin (Lanoxin) 0.125 mg PO DAILY [facility] Last Admin: 08/10/19 09:16 Dose: 0.125 mg Documented by: Estradiol (Estrace) 1 mg PO DAILY [facility] Last Admin: 08/10/19 09:15 Dose: 1 mg Documented by: Furosemide (Lasix) 40 mg PO DAILY [facility] Last Admin: 08/10/19 09:14 Dose: 40 mg Documented by: Gabapentin (Gabapentin) 300 mg PO TID [facility] Last Admin: 08/10/19 07:47 Dose: 300 mg Documented by: Glipizide (Glucotrol) 5 mg PO QDDIAB [facility] Last Admin: 08/10/19 07:47 Dose: 5 mg Documented by: Haloperidol Lactate (Haldol) 5 mg IM Q6H PRN PRN Reason: Agitation Insulin Human Isoph/Insulin Regular (Humulin 70/30) 20 unit SUB-Q BIDDIAB [facility] Last Admin: 08/10/19 09:23 Dose: 20 unit Documented by: Lorazepam (Ativan) 2 mg IM Q6H PRN PRN Reason: Agitation Nitroglycerin (Nitrostat) 0.4 mg SL .Q5MIN PRN PRN Reason: Chest Pain Pantoprazole Sodium (Protonix) 40 mg PO DAILY [facility] Last Admin: 08/10/19 09:13 Dose: 40 mg Documented by: Risperidone (Risperdal) 1 mg PO BID [facility] Last Admin: 08/10/19 09:15 Dose: 1 mg Documented by: Ropinirole HCl (Requip) 2 mg PO QHS [facility] Last Admin: 08/09/19 21:30 Dose: 2 mg Documented by: Results - Results Labs/Vitals: Laboratory Last Values WBC 8.5 K/mm3 (4.5-11.0) 08/07/19 22:00 RBC 4.19 M/mm3 (3.65-5.03) 08/07/19 22:00 Hgb 12.3 gm/dl (10.1-14.3) 08/07/19 22:00 Hct 37.7 % (30.3-42.9) 08/07/19 22:00 MCV 90 fl (79-97) 08/07/19 22:00 MCH 30 pg (28-32) 08/07/19 22:00 MCHC 33 % (30-34) 08/07/19 22:00 RDW 21.2 % (13.2-15.2) H 08/07/19 22:00 Plt Count 263 K/mm3 (140-440) 08/07/19 22:00 Lymph % (Auto) 24.0 % (13.4-35.0) 08/07/19 22:00 [place] % (Auto) 9.7 % (0.0-7.3) H 08/07/19 22:00 Eos % (Auto) 4.0 % (0.0-4.3) 08/07/19 22:00 Baso % (Auto) 1.1 % (0.0-1.8) 08/07/19 22:00 Lymph # 2.0 K/mm3 (1.2-5.4) 08/07/19 22:00 [place] # 0.8 K/mm3 (0.0-0.8) 08/07/19 22:00 Eos # 0.3 K/mm3 (0.0-0.4) 08/07/19 22:00 Baso # 0.1 K/mm3 (0.0-0.1) 08/07/19 22:00 Seg Neutrophils % 61.2 % (40.0-70.0) 08/07/19 22:00 Seg Neutrophils # 5.2 K/mm3 (1.8-7.7) 08/07/19 22:00 Sodium 135 mmol/L (137-145) L 08/07/19 22:00 Potassium 4.2 mmol/L (3.6-5.0) 08/07/19 22:00 Chloride 94.6 mmol/L (98-107) L 08/07/19 22:00 Carbon Dioxide 22 mmol/L (22-30) 08/07/19 22:00 Anion Gap 23 mmol/L 08/07/19 22:00 BUN 29 mg/dL (7-17) H 08/07/19 22:00 Creatinine 2.9 mg/dL (0.7-1.2) H 08/07/19 22:00 Estimated GFR 16 ml/min 08/07/19 22:00 BUN/Creatinine Ratio 10 % 08/07/19 22:00 Glucose 200 mg/dL (65-100) H 08/07/19 22:00 POC Glucose 147 (70-105) H 08/10/19 07:37 Calcium 9.4 mg/dL (8.4-10.2) 08/07/19 22:00 Triglycerides 268 mg/dL (2-149) H 08/07/19 22:00 Cholesterol 231 mg/dL (50-199) H 08/07/19 22:00 LDL Cholesterol Direct 156 mg/dL (50-130) H 08/07/19 22:00 HDL Cholesterol 37 mg/dL (40-59) L 08/07/19 22:00 Cholesterol/HDL Ratio 6.24 % 08/07/19 22:00 Last Vital Signs Temp 97.5 F L 08/10/19 08:17 Pulse 104 H 08/10/19 09:16 Resp 15 08/10/19 08:17 BP 115/55 08/10/19 09:16 Pulse Ox 97 08/10/19 08:17
[2019-08-10 11:15] LABS: Calcium 9.3 mg/dL (8.4-10.2)
[2019-08-10] MEDS: rOPINIRole 1 MG TAB PO SCH (21:49)
[2019-08-10] MEDS: AMITRIPTYLINE 25 MG TAB PO SCH (21:49)
[2019-08-11] MEDS: GABAPENTIN 300 MG CAP PO SCH (08:47)
[2019-08-11] MEDS: glipiZIDE 5 MG TAB PO SCH (08:47)
[2019-08-11 09:02] VITALS: BP 129/64
[2019-08-11] MEDS: risperiDONE 0.25 MG TAB PO SCH (09:04)
[2019-08-11] MEDS: PANTOPRAZOLE 40 MG TAB PO SCH (09:05)
[2019-08-11] MEDS: ESTRADIOL 1 MG TAB PO SCH (09:05)
[2019-08-11] MEDS: APIXABAN 5 MG TAB PO SCH (09:05)
[2019-08-11] MEDS: FUROSEMIDE 40 MG TAB PO SCH (09:05)
[2019-08-11] MEDS: DIGOXIN 0.125 MG TAB PO SCH (09:05)
[2019-08-11] MEDS: cephALEXin 500 MG CAP PO SCH (09:05)
--- NOTE | 2019-08-11 09:39 | Discharge Summary ---
Providers - Providers Date of Admission: 08/07/19 01:30 Date of discharge: 08/11/19 Attending physician: LUIS M IRVIN MD 08/07/19 01:30 Consult to Physician [CONS] Routine Comment: Consulting Provider: SYED CANDELARIO Physician Instructions: Reason For Exam: H&P and Medical Mgmt Primary care physician: LUIS M IRVIN MD Hospitalization Reason for admission: acute psychosis, paranoia and intermittent catatonia Condition: Good Hospital course: The patient was provided inpatient psychiatric treatment with safe and supportive environment, group therapy, individual counseling, psychiatric medication, medication adjustment, adverse effect monitor, medical evaluation, medical treatment, social service assessment, family/social support meeting, placement assessment and psycho-education. The patients mood, anxiety, thoughts, stress management skill, cognition, impulse/anger control, motivation, understanding of disease, compliance to treatment and appreciation on family/social support are improved and stabilized. At the time of discharge, the patient had no suicidal ideas, no homicidal ideas, no aggressive thoughts, no endangering behavior and no debilitating adverse effects. The patient agreed on the treatment plan, understood the risk, benefit, alternative treatment, potential consequence of no treatment, and gave informed consent. Disposition: DC-01 TO HOME OR SELFCARE Allergies/Adverse Reactions: Allergies Penicillins Adverse Reaction (Unknown, Verified 08/07/19 01:29) Unknown Vital Signs: Last Vital Signs Temp 98.2 F 08/11/19 08:57 Pulse 104 H 08/11/19 09:05 Resp 16 08/11/19 08:57 BP 129/64 08/11/19 09:05 Pulse Ox 95 08/11/19 08:57 Last Lab: Laboratory Last Values WBC 8.5 K/mm3 (4.5-11.0) 08/07/19 22:00 RBC 4.19 M/mm3 (3.65-5.03) 08/07/19 22:00 Hgb 12.3 gm/dl (10.1-14.3) 08/07/19 22:00 Hct 37.7 % (30.3-42.9) 08/07/19 22:00 MCV 90 fl (79-97) 08/07/19 22:00 MCH 30 pg (28-32) 08/07/19 22:00 MCHC 33 % (30-34) 08/07/19 22:00 RDW 21.2 % (13.2-15.2) H 08/07/19 22:00 Plt Count 263 K/mm3 (140-440) 08/07/19 22:00 Lymph % (Auto) 24.0 % (13.4-35.0) 08/07/19 22:00 Otoe % (Auto) 9.7 % (0.0-7.3) H 08/07/19 22:00 Eos % (Auto) 4.0 % (0.0-4.3) 08/07/19 22:00 Baso % (Auto) 1.1 % (0.0-1.8) 08/07/19 22:00 Lymph # 2.0 K/mm3 (1.2-5.4) 08/07/19 22:00 O[place]e # 0.8 K/mm3 (0.0-0.8) 08/07/19 22:00 Eos # 0.3 K/mm3 (0.0-0.4) 08/07/19 22:00 Baso # 0.1 K/mm3 (0.0-0.1) 08/07/19 22:00 Seg Neutrophils % 61.2 % (40.0-70.0) 08/07/19 22:00 Seg Neutrophils # 5.2 K/mm3 (1.8-7.7) 08/07/19 22:00 Sodium 137 mmol/L (137-145) 08/10/19 09:43 Potassium 4.4 mmol/L (3.6-5.0) 08/10/19 09:43 Chloride 96.3 mmol/L (98-107) L 08/10/19 09:43 Carbon Dioxide 20 mmol/L (22-30) L 08/10/19 09:43 Anion Gap 25 mmol/L 08/10/19 09:43 BUN 43 mg/dL (7-17) H 08/10/19 09:43 Creatinine 1.6 mg/dL (0.7-1.2) H 08/10/19 09:43 Estimated GFR 32 ml/min 08/10/19 09:43 BUN/Creatinine Ratio 27 % 08/10/19 09:43 Glucose 243 mg/dL (65-100) H 08/10/19 09:43 POC Glucose 158 (70-105) H 08/11/19 08:00 Calcium 9.3 mg/dL (8.4-10.2) 08/10/19 09:43 Triglycerides 268 mg/dL (2-149) H 08/07/19 22:00 Cholesterol 231 mg/dL (50-199) H 08/07/19 22:00 LDL Cholesterol Direct 156 mg/dL (50-130) H 08/07/19 22:00 HDL Cholesterol 37 mg/dL (40-59) L 08/07/19 22:00 Cholesterol/HDL Ratio 6.24 % 08/07/19 22:00 - Discharge Diagnoses (1) Schizophrenia Status: Acute Qualifiers: Schizophrenia type: catatonic schizophrenia Qualified Code(s): F20.2 - Catatonic schizophrenia Core Measure Documentation - Palliative Care Palliative Care/ Comfort Measures: Not Applicable - Core Measures Any of the following diagnoses?: none Exam - Constitutional Vitals: Temp Pulse Resp BP Pulse Ox 98.2 F 104 H 16 129/64 95 08/11/19 08:57 08/11/19 09:05 08/11/19 08:57 08/11/19 09:05 08/11/19 08:57 General appearance: Present: no acute distress, well-nourished - EENT Eyes: Present: PERRL, EOM intact ENT: hearing intact, clear oral mucosa - Neck Neck: Present: supple, normal ROM - Respiratory Respiratory effort: normal Plan Activity: advance as tolerated Weight Bearing Status: Weight Bear as Tolerated Care Plan Goals: Maintain good and stable mental health Plan of Treatment: Take medications as prescribed Health Concerns: Diabetes, Hypertension Assessment: Schizophrenia Follow up with: LUIS M IRVIN MD [Primary Care Provider] - 7 Days Prescriptions: risperiDONE [RisperDAL] 1 mg PO BID #120 tablet
[2019-08-11] MEDS: INSULIN NPH/REGULAR 70/30 INJ SUB-Q SCH (09:52)
== END 2019-08-11 11:40 | disposition home or self-care (01) | DRG 885 ==
LOC: UNDOADMIN 01:05 → 3A 01:05 → 5A 01:30
PROVIDERS: ADMIT Psychiatry & Neurology Psychiatry; ATTEND Psychiatry & Neurology Psychiatry
DX: F20.2 Catatonic schizophrenia (principal); E87.1 Hypo-osmolality and hyponatremia; G25.81 Restless legs syndrome; I25.10 Atherosclerotic heart disease of native coronary artery without angina pectoris; E11.9 Type 2 diabetes mellitus without complications; E78.5 Hyperlipidemia, unspecified; I11.0 Hypertensive heart disease with heart failure; I50.9 Heart failure, unspecified; I25.2 Old myocardial infarction; Z95.5 Presence of coronary angioplasty implant and graft; Z95.1 Presence of aortocoronary bypass graft; Z82.49 Family history of ischemic heart disease and other diseases of the circulatory system; Z88.0 Allergy status to penicillin; Z79.01 Long term (current) use of anticoagulants; Z79.4 Long term (current) use of insulin; Z79.899 Other long term (current) drug therapy
CPT/HCPCS: 36415; 80048; 80061; 82962; 85025; G0378; J1815